=== PATIENT | male | born 1995 | race Two or more races ===

== ENCOUNTER 2020-04-23 18:39 | Emergency (ER) | payer OTHER ==
[~2020-04-23] VITALS: Ht 170.2 cm; Wt 49.9 kg
[~2020-04-23 18:39] MED LIST: CEPHALEXIN500 MG ORAL; IBUPROFEN600 M1 ORAL
[2020-04-23 18:51] VITALS: BP 122/73
--- NOTE | 2020-04-23 18:51 | NUR ---
ED Nurse Note: Patient walked in to ED from home for stitches removal on left arm. Pt was seen here last 04/16/2020. Denies pain. AAox4, no SOB.
--- NOTE | 2020-04-23 18:56 | Emergency Room Report ---
History of Present Illness General Chief Complaint: Wound Recheck/Suture Removal Source: Patient Present Illness HPI 25-year-old male presents to the emergency department for suture removal. Patient reports having sutures underneath the sugar tong splint of his left forearm. Patient reports sutures were placed on 04 16. Patient denies pain, paresthesias, fevers or chills. Patient states he is unable to visualize the area so he is unaware of any discharge or increased erythema. No other aggravating or relieving factors at this time. Patient is up-to-date with vaccinations. Allergies: Coded Allergies: No Known Allergies (Unverified , 04/16/20) COVID-19 Screening Contact w/high risk pt: No Experienced COVID-19 symptoms?: No COVID-19 Testing performed BROOM STITCHER: No Patient History Past Medical History: see triage record Past Surgical History: none Pertinent Family History: none Immunizations: UTD Reviewed Nursing Documentation: PMH: Agreed; PSxH: Agreed Nursing Documentation-PMH Past Medical History: No History, Except For Review of Systems All Other Systems: negative except mentioned in HPI Physical Exam Vital Signs Date Time Temp Pulse Resp B/P (MAP) Pulse Ox O2 Delivery O2 Flow Rate FiO2 04/23/20 18:47 97.9 91 18 122/73 (89) 99 Room Air Sp02 EP Interpretation: reviewed, normal General Appearance: no apparent distress, alert, GCS 15, non-toxic Head: normocephalic, atraumatic Eyes: bilateral eye normal inspection, bilateral eye PERRL ENT: hearing grossly normal, normal voice Neck: full range of motion Respiratory: chest non-tender, lungs clear, normal breath sounds, speaking full sentences Cardiovascular #1: regular rate, rhythm, normal capillary refill Musculoskeletal: normal range of motion, gait/station normal, non-tender, other - Left forearm sugar tong intact. Neurologic: alert, motor strength/tone normal, oriented x3, sensory intact, responsive, speech normal Psychiatric: judgement/insight normal Skin: wd healing/no infection noted - Small laceration to the dorsal left forearm with 3 sutures that are intact no evidence of infection. Medical Decision Making PA Attestation Dr. Huntley Is my supervising Physician whom patient management has been discussed with. Diagnostic Impression: Primary Impression: Encounter for removal of sutures ER Course 25-year-old male presents to the emergency department for suture removal. Patient reports having sutures underneath the sugar tong splint of his left forearm. Patient reports sutures were placed on 11 5. Patient denies pain, paresthesias, fevers or chills. Patient states he is unable to visualize the area so he is unaware of any discharge or increased erythema. No other aggravating or relieving factors at this time. Patient is up-to-date with vaccinations. Ddx considered but are not limited to laceration, tendon injury, cellulitis,dehiscence. Vital signs: are WNL, pt. is afebrile H&PE are most consistent with: healed laceration of the Left forearm ORDERS: none required at this time, the diagnosis is clinical ED INTERVENTIONS: ----With the help of JAROD Soria. The patient's left forearm was stabilized and the sugar tong splint was gently removed. Sutures were accessible. No evidence of infection - 3 Sutures removed. Left forearm sugar tong splint splint is reapplied by EDPA and RN . Pt. remains neurovascularly intact. I discussed with patient the importance of leaving his splint on as I was suspic ious that it was removed as the Jose wrap on it was secured by duct tape for which we do not carry here in the ER. Also patient admitted that he has not followed up with research computing specialist yet. I reiterated to the patient that is very important that he follows up with orthopedics to ensure proper healing of his injury. DISCHARGE: At this time pt. is stable for d/c to home. Will provide printed patient care instructions, and any necessary prescriptions. Care plan and follow up instructions have been discussed with the patient prior to discharge. Last Vital Signs Date Time Temp Pulse Resp B/P (MAP) Pulse Ox O2 Delivery O2 Flow Rate FiO2 04/23/20 18:51 97.9 91 18 122/73 99 Room Air Disposition: HOME, SELF-CARE Condition: Stable Patient Instructions: Suture Removal, Care After Additional Instructions: Take any previously prescribed medications as directed. Follow up with a Primary Care Provider in 3-5 days, even if your symptoms have resolved. --Please review list of primary care clinics, if you do not already have a primary care provider Return sooner to ED if new symptoms occur, or current symptoms become worse. - Please note that this Emergency Department Report was dictated using [employer] cutting tool technology software, occasionally this can lead to erroneous entry secondary to interpretation by the dictation equipment. Veronica Garcia Apr 23, 2020 18:56
[2020-04-23 19:19] VITALS: BP 122/73
--- NOTE | 2020-04-23 19:19 | NUR ---
ED Nurse Note: Pt cleared by ERPA for discharge. DC instructions was given and explained to pt and verbalized understanding of teachings. All medical deviecs such as ID band removed. Pt is AAO x4, ambulatory and left with all personal belongings.
== END 2020-04-23 19:19 | disposition home or self-care (01) ==
LOC: EMR 19:00
DX: Z48.02 Encounter for removal of sutures (principal); S51.812D Laceration without foreign body of left forearm, subsequent encounter; X58.XXXD Exposure to other specified factors, subsequent encounter
CPT/HCPCS: 99281